=== PATIENT | male | born 1975 | race African-American/Black ===

== ENCOUNTER 2018-08-09 01:31 | Emergency (ER) | payer MEDICAID ==
[~2018-08-09] VITALS: Ht 182.9 cm; Wt 95.3 kg
[2018-08-09] MEDS ORDERED: IBUPROFEN600 MG ORAL (01:38)
[2018-08-09 01:54] VITALS: BP 127/80
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
[2018-08-09 02:14] VITALS: BP 127/80
--- NOTE | 2018-08-09 13:47 | Diagnostic Imaging Report ---
Indication: Right shoulder pain Findings: 3 views of the right shoulder were obtained. No acute fractures, malalignment, erosions or periostitis are identified. Soft tissues are unremarkable. Impression: Negative for acute injury
== END 2018-08-09 02:18 | disposition home or self-care (01) ==
LOC: EMR 02:00
DX: S43.401A Unspecified sprain of right shoulder joint, initial encounter (principal); V43.52XA Car driver injured in collision with other type car in traffic accident, initial encounter; Y92.410 Unspecified street and highway as the place of occurrence of the external cause
CPT/HCPCS: 29105; 99283

== ENCOUNTER 2019-04-11 19:36 | Emergency (ER) | payer MEDICAID ==
[~2019-04-11] VITALS: Ht 182.9 cm; Wt 99.8 kg
[~2019-04-11 19:36] MED LIST: IBUPROFEN600 MG ORAL
[2019-04-11] MEDS ORDERED: Lidocaine 1% MPF 10mg/ml 5ml INJ ONE (20:00)
[2019-04-11 20:03] VITALS: BP 127/81
--- NOTE | 2019-04-11 20:07 | NUR ---
ED Nurse Note: Patient walked in to ER with his girlfriend, to rull out STD. JOHNNAO x4, VSS at this time.
--- NOTE | 2019-04-11 20:11 | Emergency Room Report ---
History of Present Illness General Chief Complaint: General Complaint Source: Patient Present Illness HPI 44-year-old male with no significant past medical history here requesting treatment for both chlamydia and gonorrhea due to possible exposure. Patient is here with his and since his has vaginal discharge would like to be treated for possibilities of STDs. Patient is currently asymptomatic, denies any penile discharge, dysuria, penile ulceration, suprapubic pain or pressure. Denies other associated symptoms. Allergies: Coded Allergies: No Known Allergies (Unverified , 08/09/18) Patient History Past Medical History: see triage record Past Surgical History: unable to obtain Pertinent Family History: none Immunizations: UTD Reviewed Nursing Documentation: PMH: Agreed; PSxH: Agreed Nursing Documentation-PMH Past Medical History: No History, Except For Hx Neurological Problems: Yes - right hip replacement Review of Systems All Other Systems: negative except mentioned in HPI Physical Exam Vital Signs Date Time Temp Pulse Resp B/P (MAP) Pulse Ox O2 Delivery O2 Flow Rate FiO2 04/11/19 19:45 98.4 62 16 127/81 (96) 96 Room Air Sp02 EP Interpretation: reviewed, normal General Appearance: no apparent distress, alert, GCS 15, non-toxic Head: normocephalic, atraumatic ENT: hearing grossly normal, normal pharynx, no angioedema, normal voice Neck: full range of motion, supple/symm/no masses Respiratory: chest non-tender, lungs clear, normal breath sounds, speaking full sentences Cardiovascular #1: regular rate, rhythm, no edema Gastrointestinal: normal bowel sounds, non tender, soft, non-distended, no guarding, no rebound Genitourinary: no CVA tenderness Musculoskeletal: back normal Neurologic: normal inspection, alert, oriented x3 Psychiatric: normal inspection, judgement/insight normal Skin: no rash Lymphatic: no adenopathy Medical Decision Making PA Attestation All my diagnosis and treatment plans were reviewed ad discussed with my supervising physician Dr. Aguilar Diagnostic Impression: Primary Impression: STD exposure ER Course 44-year-old male with no significant past medical history here requesting treatment for both chlamydia and gonorrhea due to possible exposure. Patient is here with his and since his has vaginal discharge would like to be treated for possibilities of STDs. Patient is currently asymptomatic, denies any penile discharge, dysuria, penile ulceration, suprapubic pain or pressure. Denies other associated symptoms. Ddx considered but are not limited to: UTI, chlamydia, Gonorrhea, Vital signs: are WNL, pt. is afebrile H&PE are most consistent with : STD exposure ORDERS: UA, GC and chlamydia, doxycycline ED INTERVENTIONS: Rocephin IM DISCHARGE: At this time pt. is stable for d/c to home. Will provide printed patient care instructions, and any necessary prescriptions. Care plan and follow up instructions have been discussed with the patient prior to discharge. Patient is aware of pending chlamydia and gonorrhea results however agrees to take prophylactic treatments for both Last Vital Signs Date Time Temp Pulse Resp B/P (MAP) Pulse Ox O2 Delivery O2 Flow Rate FiO2 04/11/19 20:03 62 16 Room Air 04/11/19 20:03 98.4 127/81 96 Disposition: HOME, SELF-CARE Condition: Stable Scripts Doxycycline Hyclate (DOXYCYCLINE HYCLATE) 100 Mg Tablet 100 MG PO BID for 10 Days, #20 TAB Prov: Rob Paris 04/11/19 Referrals: [facility],REFERRING (PCP) Patient Instructions: Chlamydia, Male, Gonorrhea Additional Instructions: Take medication as directed follow-up with your primary care provider Rob Paris Apr 11, 2019 20:11
[2019-04-11] MEDS ORDERED: DOXYCYCLINE HY100 M6 PO (20:12)
[2019-04-11 20:23] LABS: APPEARANCE,URINE CLEAR; BILIRUBIN, URINE NEGATIVE (NEGATIVE); GLUCOSE, URINE (UA) NEGATIVE (NEGATIVE); KETONES,URINE 1+ (NEGATIVE); LEUKOCYTE ESTERASE ,URINE 1+ (NEGATIVE); NITRITE,URINE NEGATIVE (NEGATIVE); PH,URINE 6.5 (4.5-8.0); PROTEIN,URINE NEGATIVE (NEGATIVE); UROBILINOGEN,URINE 4 MG/DL (0.0-1.0)
[2019-04-11 20:35] VITALS: BP 127/81
[2019-04-11 20:35] LABS: COLOR,URINE YELLOW
--- NOTE | 2019-04-11 21:25 | NUR ---
ED Nurse Note: Pt cleared by health care Provider for discharge. DC instructions/prescription was given and explained to pt and verbalized understanding of teachings. All medical deviecs such as ID band removed. Pt is AAO x4, ambulatory and left with all personal belongings.
== END 2019-04-11 20:35 | disposition home or self-care (01) ==
LOC: EMR 20:08
DX: Z20.2 Contact with and (suspected) exposure to infections with a predominantly sexual mode of transmission (principal); Z96.641 Presence of right artificial hip joint
CPT/HCPCS: 81001; 87491; 87590; 96372; 99284; J0696

== ENCOUNTER 2020-05-07 14:48 | Emergency (ER) | payer MEDICAID ==
[~2020-05-07] VITALS: Ht 183.5 cm; Wt 90.7 kg
[~2020-05-07 14:48] MED LIST changes: +DOXYCYCLINE HY100 M6 PO
[2020-05-07 14:58] VITALS: BP 128/90
[2020-05-07] MEDS ORDERED: Azithromycin 250mg tab ORAL ONE (15:15)
[2020-05-07] MEDS ORDERED: Lidocaine 1% MPF 10mg/ml 5ml INJ ONE (15:15)
[2020-05-07 16:14] LABS: APPEARANCE,URINE SLIGHTLY CLOUDY; BILIRUBIN, URINE NEGATIVE (NEGATIVE); COLOR,URINE PALE YELLOW; GLUCOSE, URINE (UA) NEGATIVE (NEGATIVE); KETONES,URINE NEGATIVE (NEGATIVE); LEUKOCYTE ESTERASE ,URINE 2+ (NEGATIVE); NITRITE,URINE NEGATIVE (NEGATIVE); PH,URINE 6 (4.5-8.0); PROTEIN,URINE NEGATIVE (NEGATIVE); UROBILINOGEN,URINE NORMAL MG/DL (0.0-1.0)
[2020-05-07] MEDS ORDERED: CEPHALEXIN500 MG ORAL (16:29)
--- NOTE | 2020-05-07 16:29 | Emergency Room Report ---
History of Present Illness General Chief Complaint: Male Urogenital Problems Present Illness HPI 45-year-old male with no no symptom hospital history here complaining of 2 days of penile discharge and dysuria. Reports that he was sexually active with a different partner unprotected and also sexually active with his significant other shortly after. Denies any fever and chills, penile ulceration, or pruritus. Denies scrotal pain. Has not taken medication for symptom relief. Denies using condoms. Patient is requesting to be treated for possible chlamydia and gonorrhea. Allergies: Coded Allergies: No Known Allergies (Unverified , 08/09/18) COVID-19 Screening Contact w/high risk pt: No Experienced COVID-19 symptoms?: No COVID-19 Testing performed CHAIN CARRIER: No Patient History Past Medical History: see triage record Past Surgical History: none Pertinent Family History: none Immunizations: UTD Reviewed Nursing Documentation: PMH: Agreed; PSxH: Agreed Nursing Documentation-PMH Hx Neurological Problems: Yes - right hip replacement Review of Systems All Other Systems: negative except mentioned in HPI Physical Exam Vital Signs Date Time Temp Pulse Resp B/P (MAP) Pulse Ox O2 Delivery O2 Flow Rate FiO2 05/07/20 14:53 98.4 86 20 124/92 (103) 94 Room Air Sp02 EP Interpretation: reviewed, normal General Appearance: no apparent distress, alert, GCS 15, non-toxic Head: normocephalic, atraumatic Eyes: bilateral eye normal inspection, bilateral eye PERRL ENT: hearing grossly normal, normal pharynx, no angioedema, normal voice Neck: full range of motion, supple/symm/no masses Respiratory: chest non-tender, lungs clear, normal breath sounds, no rhonchi, speaking full sentences Cardiovascular #1: regular rate, rhythm, no edema, no murmur Gastrointestinal: normal bowel sounds, non tender, soft, non-distended, no guarding, no rebound Rectal: deferred Genitourinary: no CVA tenderness Musculoskeletal: back normal Neurologic: alert, motor strength/tone normal, oriented x3, sensory intact, responsive, speech normal Psychiatric: judgement/insight normal, memory normal, mood/affect normal, no suicidal/homicidal ideation Skin: no rash Lymphatic: no adenopathy Medical Decision Making PA Attestation All diagnoses and treatment plans were reviewed and discussed with my supervising physician Dr. Zack Diagnostic Impression: Primary Impression: Penile discharge Additional Impression: UTI (urinary tract infection) ER Course 45-year-old male with no no symptom hospital history here complaining of 2 days of penile discharge and dysuria. Reports that he was sexually active with a different partner unprotected and also sexually active with his significant other shortly after. Denies any fever and chills, penile ulceration, or pruritus. Denies scrotal pain. Has not taken medication for symptom relief. Denies using condoms. Patient is requesting to be treated for possible chlamydia and gonorrhea. Ddx considered but are not limited to: UTI, prostatitis, chlamydia, Gonorrhea, syphilis, HIV, herpes 1 or 2 Vital signs: are WNL, pt. is afebrile H&PE are most consistent with : Penile discharge, UTI ORDERS: UA, urince cx, Keflex ED INTERVENTIONS: Rocephin IM, azithromycin p.o. per patient request to be treated for chlamydia and gonorrhea DISCHARGE: At this time pt. is stable for d/c to home. Will provide printed patient care instructions, and any necessary prescriptions. Care plan and follow up instructions have been discussed with the patient prior to discharge. Gave a list of STD clinics for patient to get tested, patient to use condoms, if worsening symptoms return to the emergency room Last Vital Signs Date Time Temp Pulse Resp B/P (MAP) Pulse Ox O2 Delivery O2 Flow Rate FiO2 05/07/20 14:58 98.2 83 18 128/90 96 Room Air Disposition: HOME, SELF-CARE Condition: Stable Scripts Cephalexin* (KEFLEX*) 500 Mg Capsule 500 MG ORAL EVERY 12 HOURS for 7 Days, #14 CAP 0 Refills Prov: Rbo Paris 05/07/20 Patient Instructions: Chlamydia, Male, Gonorrhea, Urinary Tract Infection Additional Instructions: Take medication as directed, follow primary care provider, patient symptoms return to the emergency room Rob Paris May 07, 2020 16:29
== END 2020-05-07 16:42 | disposition home or self-care (01) ==
LOC: EMR 15:00
DX: N39.0 Urinary tract infection, site not specified (principal); R36.9 Urethral discharge, unspecified; Z96.641 Presence of right artificial hip joint
CPT/HCPCS: 81003; 87086; 96372; J0696; Q0144; Z7502; 99283